=== PATIENT | male | born 1960 | race African-American/Black ===

== ENCOUNTER 2020-03-10 19:22 | Observation (INO) | payer OTHER ==
--- NOTE | 2020-03-10 19:57 | RAD REPORT ---
EXAM DESCRIPTION: CT - Head Brain Wo Cont - 03/10/2020 7:52 pm CLINICAL HISTORY: LOC head injury COMPARISON: No comparisons TECHNIQUE: Axial 5 mm thick images of the head were obtained without IV contrast. All CT scans are performed using dose optimization technique as appropriate and may include automated exposure control or mA/KV adjustment according to patient size. FINDINGS: No intracranial hemorrhage, mass, edema or shift of mid-line structures. No acute infarcti on changes seen. No abnormal extra-axial fluid collections. Ventricles are normal. Prominent physiol ogic calcifications are present. Mastoid air cells and visualized portions of the paranasal sinuses are clear. No acute bony findings. IMPRESSION: Negative non-contrast CT head examination.
[2020-03-10 20:50] LABS: Absolute Lymphocytes (CBC) 0.8 K/uL (0.7-4.9); Basophils % 0.5 % (0-1.3); Hematocrit 40.2 % (39.6-49.0); Lymphocytes % 14.2 % (15.3-44.8); MPV 9.2 fL (7.6-11.3); RBC Red Blood Cell Count 4.23 M/uL (4.33-5.43)
[2020-03-10 21:05] LABS: ALT/SGPT 34 U/L (12-78); AST/SGOT 36 U/L (15-37); Albumin 4.1 g/dL (3.4-5.0); Alkaline Phosphatase 70 U/L (45-117); BUN Blood Urea Nitrogen 32 mg/dL (7-18); Bicarbonate 32 mmol/L (21-32); Bilirubin Direct 0.2 mg/dL (0-0.2); Bilirubin Total 0.7 mg/dL (0.2-1.0); Glucose Level 115 mg/dL (74-106); Magnesium 2.5 mg/dL (1.8-2.4); NT PRO-BNP 81 pg/mL (<125); Potassium 3.3 mmol/L (3.5-5.1); Protein, Total 7.9 g/dL (6.4-8.2); Sodium Level 140 mmol/L (136-145); Troponin (Emerg Dept Use Only) < 0.02 ng/mL (0.0-0.045)
--- NOTE | 2020-03-10 21:17 | RAD REPORT ---
EXAM DESCRIPTION: RAD - Chest Single View - 03/10/2020 8:42 pm CLINICAL HISTORY: syncope COMPARISON: None TECHNIQUE: AP portable chest image was obtained 03/10/2020 8:42 pm . FINDINGS: Lungs are clear. No peripheral mass or consolidation. Focal nodularity superimposed on the posterior right sixth rib is believed to be a vessel seen on-end. Heart and vasculature are normal. No measurable pleural effusion and no pneumothorax. No acute bony abnormality seen. No acute aortic f indings suspected. IMPRESSION: No acute cardiopulmonary process.
--- NOTE | 2020-03-10 21:25 | ER ---
Nurse's Notes [facility] Name: Helio Spangler Age: 59 yrs Sex: Male : 1960 Arrival Date: 03/10/2020 Time: 19:27 Bed 16 Private MD: Diagnosis: Syncope and collapse;Atrial fibrillation and flutter-New onset;Contusion of unspecified part of head Presentation: 03/10 19:45 Chief complaint: Patient states: "I WAS SOAKING MY FEET IN EPSON SALT WHEN I STARTED vc FEELING TIRED, I STOOD UP AND PASSED OUT, I WOKE UP 2-3 MINUTES LATER ON MY BACK, SWEATING A LOT." PATIENT STATES UNWITNESSED LOC. Coronavirus screen: Proceed with normal triage. Patient denies a cough. Patient denies shortness of breath or difficulty breathing. Patient denies measured and/or subjective temperature greater than 100.4F prior to today's visit. Patient denies travel on a cruise ship or to a country the [facility] currently lists as an affected area. Patient denies contact with known and/or suspected case of COVID-19. Ebola Screen: No symptoms or risks identified at this time. Mechanism of Injury: resulted from a fall, from a standing position. Initial Sepsis Screen: Does the patient meet any 2 criteria? No. Patient's initial sepsis screen is negative. Does the patient have a suspected source of infection? No. Patient's initial sepsis screen is negative. Risk Assessment: Do you want to hurt yourself or someone else? Patient reports no desire to harm self or others. 19:45 Method Of Arrival: Ambulatory vc 19:45 Acuity: ELISA 3 vc 20:52 Onset of symptoms was March 10, 2020. Triage Assessment: 19:45 General: Appears in no apparent distress. Behavior is calm, cooperative, appropriate vc for age. Neuro: Reports a syncopal episode. Neuro: Level of Consciousness is awake, alert, obeys commands, Oriented to person, place, time, situation, Appropriate for age. Historical: - Allergies: 19:50 No Known Allergies; vc - Home Meds: 19:50 clonidine HCl 0.1 mg Oral tab 1 tab 3 times per day [Active]; vc aqlluaggma-xcphhhjycp-oegkckasmmfvywtbqtb oral 40-10-25 oral 1 tab once daily [Active]; - PMHx: 19:50 Hypertension; CHF; Renal Disease; vc - Immunization history:: Adult Immunizations up to date. - Social history:: Smoking status: Patient denies any tobacco usage or history of. Screenin:51 Abuse screen: Denies threats or abuse. Nutritional screening: No deficits noted. Tuberculosis screening: No symptoms or risk factors identified. Fall Risk None identified. Assessment: 20:20 General: Appears in no apparent distress. Behavior is calm, cooperative, appropriate for age. Pain: Denies pain. Neuro: Level of Consciousness is awake, alert, obeys commands, Oriented to person, place, time, situation, Appropriate for age. Cardiovascular: Heart tones S1 S2 present Capillary refill < 3 seconds Patient's skin is warm and dry. Pulses are palpable in right radial artery and left radial artery Rhythm is atrial fibrillation With PVC's. Respiratory: Airway is patent Respiratory effort is even, unlabored, Respiratory pattern is regular, symmetrical. Derm: Skin is intact, is healthy with good turgor, Skin is dry, Skin is. 21:53 Reassessment: Patient appears in no apparent distress at this time. Patient and/or family updated on plan of care and expected duration. Pain level reassessed. Patient is alert, oriented x 3, equal unlabored respirations, skin warm/dry/pink. 23:00 Reassessment: Patient appears in no apparent distress at this time. Patient and/or family updated on plan of care and expected duration. Pain level reassessed. Patient is alert, oriented x 3, equal unlabored respirations, skin warm/dry/pink. Vital Signs: 19:45 BP 128 / 78; Pulse 67; Resp 17; Temp 98.4; Pulse Ox 100% on R/A; Weight 87.09 kg; vc Height 6 ft. 4 in. (193.04 cm); 21:45 BP 131 / 95; Pulse 65; Resp 15; Pulse Ox 100% on R/A; vc 23:00 BP 111 / 68; Pulse 59; Resp 18; Pulse Ox 98% on R/A; wh 23:00 BP 111 / 68; Pulse 59; Resp 19; Pulse Ox 98% on R/A; vc 19:45 Body Mass Index 23.37 (87.09 kg, 193.04 cm) [place] Coma Score: 19:45 Eye Response: spontaneous(4). Verbal Response: oriented(5). Motor Response: obeys commands(6). Total: 15. ED Course: 19:27 Patient arrived in ED. cl3 19:46 Kyra Castellano, RN is Primary Nurse. 19:47 Kevin Bearden NP is PHCP. pm1 19:47 Elkin Tolbert MD is Attending Physician. pm1 19:48 Triage completed. vc 19:52 CT Head Brain wo Cont In Process Unspecified. EDMS 20:00 Inserted saline lock: 20 gauge in left antecubital area, using aseptic technique. Blood wh collected. By Kyra Castellano RN. 20:42 XRAY Chest (1 view) In Process Unspecified. EDMS 20:51 Arm band placed on right wrist. ah 20:52 Patient has correct armband on for positive identification. Bed in low position. Call light in reach. Side rails up X 1. cardiac monitor technician on. Pulse ox on. NIBP on. 21:25 Sharif Anderson MD is Hospitalizing Provider. pm1 23:19 No provider procedures requiring assistance completed. Patient admitted, IV remains in place. Administered Medications: 22:03 Drug: Lovenox 1 mg/kg Route: Sub-Q; Site: left lower abdomen; vc 22:09 Follow up: Response: No adverse reaction; Other; NO BLEEDING NOTED vc Outcome: 21:25 Decision to Hospitalize by Provider. pm1 23:21 Admitted to Med/surg accompanied by tech, family with patient, via wheelchair, room wh 219, Report called to Yaritza Nuñez RN 23:21 Condition: stable 23:21 Instructed on the need for transfer. 23:27 Patient left the ED. Signatures: Dispatcher [employer] EDOK Kevin Bearden, [employer] OPERATOR pm1 Jayy Mares Hardeep Stephens cl3 Zohra Wall RN RN Kyra Castellano, BESSIE RN Corrections: (The following items were deleted from the chart) 23:22 23:00 BP 121 / 84; Pulse 80bpm; Resp 18bpm; Pulse Ox 100% RA; [facility]
--- NOTE | 2020-03-10 21:25 | EDPHYS ---
Physician Documentation [facility] Name: Helio Spangler Age: 59 yrs Sex: Male : 1960 Arrival Date: 03/10/2020 Time: 19:27 Bed 16 Private MD: ED Physician Elkin Tolbert HPI: 03/10 20:09 This 59 yrs old Black Male presents to ER via Ambulatory with complaints of Passed Out pm1 Prior To Arrival, Head Injury-Adult. 20:09 The patient has experienced syncope, collapsed. Onset: The symptoms/episode pm1 began/occurred just prior to arrival. Duration: This was a single episode, that lasted an unknown period of time, a few minutes per patient. Context: the episode(s) was witnessed, by no one, occurred at home, occurred while the patient was walking, Just prior to the episode the patient experienced "sleepiness". Associated injury: Head/face: left temporal area, contusion. Associated signs and symptoms: Pertinent negatives: abdominal pain, chest pain, dizziness, numbness, shortness of breath, tingling. Current symptoms: Currently, the patient is not experiencing any symptoms. The patient has not experienced similar symptoms in the past. last saw steam shovel runner in the office about 1 month ago. Patient was sitting in a chair soaking his feet when he started feeling "sleepiness," so he got up to walk to his bed. Next thing he remembers is waking up on the floor on his back covered in sweat. No dizziness, no apparent orthostasis, chest pain, shortness of breath, or weakness. Historical: - Allergies: 19:50 No Known Allergies; vc - Home Meds: 19:50 clonidine HCl 0.1 mg Oral tab 1 tab 3 times per day [Active]; vc nouugossxh-nuzwqyyizw-xamynculkuxzcaohrgx oral 40-10-25 oral 1 tab once daily [Active]; - PMHx: 19:50 Hypertension; CHF; Renal Disease; vc - Immunization history:: Adult Immunizations up to date. - Social history:: Smoking status: Patient denies any tobacco usage or history of. ROS: 20:09 Constitutional: Negative for fever, chills, and weight loss, Eyes: Negative for injury, pm1 pain, redness, and discharge, ENT: Negative for injury, pain, and discharge, Neck: Negative for injury, pain, and swelling. 20:09 Cardiovascular: Negative for chest pain, palpitations, and edema, Respiratory: Negative for shortness of breath, cough, wheezing, and pleuritic chest pain, Abdomen/GI: Negative for abdominal pain, nausea, vomiting, diarrhea, and constipation, Back: Negative for injury and pain, MS/Extremity: Negative for injury and deformity, Skin: Negative for injury, rash, and discoloration. 20:09 Neuro: Positive for headache, syncope. Exam: 20:09 Abdomen/GI: Exam negative for Inspection: abdomen appears normal, Palpation: abdomen is pm1 soft and non-tender, in all quadrants, mass, is not appreciated, rebound tenderness, is not appreciated. 20:09 Constitutional: This is a well developed, well nourished patient who is awake, alert, and in no acute distress. Head/Face: Normocephalic, atraumatic. Neck: Trachea midline, no thyromegaly or masses palpated, and no cervical lymphadenopathy. Supple, full range of motion without nuchal rigidity, or vertebral point tenderness. No Meningismus. Chest/axilla: Normal chest wall appearance and motion. Nontender with no deformity. No lesions are appreciated. 20:09 Abdomen/GI: Soft, non-tender. No guarding or rebound. No evidence of tenderness throughout. Back: No spinal tenderness. No costovertebral tenderness. Full range of motion. Skin: Warm, dry with normal turgor. Normal color with no rashes, no lesions, and no evidence of cellulitis. MS/ Extremity: Pulses equal, no cyanosis. Neurovascular intact. Full, normal range of motion. 20:09 Cardiovascular: Rate: normal, Rhythm: irregular, Pulses: no pulse deficits are appreciated, Edema: is not appreciated. 20:09 Respiratory: the patient does not display signs of respiratory distress, Respirations: normal. 20:09 Neuro: Orientation: is normal, Mentation: is normal, Cranial nerves: CN II- XII are normal as tested, Cerebellar function: normal finger to nose testing, Motor: is normal, moves all fours, Sensation: is normal, no obvious gross deficits. Vital Signs: 19:45 BP 128 / 78; Pulse 67; Resp 17; Temp 98.4; Pulse Ox 100% on R/A; Weight 87.09 kg; vc Height 6 ft. 4 in. (193.04 cm); 21:45 BP 131 / 95; Pulse 65; Resp 15; Pulse Ox 100% on R/A; vc 23:00 BP 111 / 68; Pulse 59; Resp 18; Pulse Ox 98% on R/A; wh 23:00 BP 111 / 68; Pulse 59; Resp 19; Pulse Ox 98% on R/A; vc 19:45 Body Mass Index 23.37 (87.09 kg, 193.04 cm) vc Marcel Coma Score: 19:45 Eye Response: spontaneous(4). Verbal Response: oriented(5). Motor Response: obeys vc commands(6). Total: 15. MDM: 19:47 Patient medically screened. pm1 21:09 ED course: Patient denies any history of atrial fibrillation in the past. pm1 21:24 Data reviewed: vital signs. Data interpreted: Pulse oximetry: on room air is 100 %. pm1 Interpretation: normal. Counseling: I had a detailed discussion with the patient and/or guardian regarding: the historical points, exam findings, and any diagnostic results supporting the discharge/admit diagnosis, lab results, radiology results, the need for further work-up and treatment in the hospital. 03/10 20:15 Order name: Basic Metabolic Panel; Complete Time: 21:06 pm1 03/10 20:15 Order name: CBC with Diff; Complete Time: 21:06 pm1 03/10 20:15 Order name: LFT's; Complete Time: 21:06 pm1 03/10 20:15 Order name: Magnesium; Complete Time: 21:06 pm1 03/10 20:15 Order name: NT PRO-BNP; Complete Time: 21:06 pm1 03/10 20:15 Order name: PT-INR; Complete Time: 21:19 pm1 03/10 20:15 Order name: Troponin (emerg Dept Use Only); Complete Time: 21:06 pm1 03/10 22:24 Order name: CBC with Automated Diff EDMS 03/10 22:24 Order name: CBC with Automated Diff EDMS 03/10 22:24 Order name: Lipid Profile EDMS 03/10 22:24 Order name: Lipid Profile EDMS 03/10 22:26 Order name: Magnesium EDMS 03/10 22:26 Order name: Phosphorus EDMS 03/10 22:26 Order name: Protime (+INR) EDMS 03/10 19:37 Order name: CT Head Brain wo Cont; Complete Time: 20:06 tw4 03/10 20:15 Order name: XRAY Chest (1 view); Complete Time: 21:19 pm1 03/10 20:15 Order name: EKG; Complete Time: 20:17 pm1 03/10 22:24 Order name: CONS Physician Consult EDWI 03/10 22:24 Order name: Heart Healthy EDWI 03/10 22:24 Order name: Echo with Doppler EDWI 03/10 22:24 Order name: EKG Electrocardiogram EDWI 03/10 22:24 Order name: EKG Electrocardiogram EDWI 03/10 22:26 Order name: T4 Free EDWI 03/10 22:26 Order name: Thyroid Stimulating Hormone EDWI 03/10 22:26 Order name: Ur Protein EDWI 03/10 22:26 Order name: NT PRO-BNP EDWI 03/10 22:26 Order name: Troponin I EDWI 03/10 22:26 Order name: Renal Ultrasound-Complete [facility] 03/10 22:26 Order name: Renal Ultrasound-Complete [facility] 03/10 20:15 Order name: Cardiac monitoring; Complete Time: 20:38 pm1 03/10 20:15 Order name: EKG - Nurse/Tech; Complete Time: 21:55 pm1 03/10 20:15 Order name: IV Saline Lock; Complete Time: 20:38 pm1 03/10 20:15 Order name: Labs collected and sent; Complete Time: 20:38 pm1 03/10 20:15 Order name: O2 Per Protocol; Complete Time: 20:38 pm1 03/10 20:15 Order name: O2 Sat Monitoring; Complete Time: 20:38 pm1 Administered Medications: 22:03 Drug: Lovenox 1 mg/kg Route: Sub-Q; Site: left lower abdomen; vc 22:09 Follow up: Response: No adverse reaction; Other; NO BLEEDING NOTED vc Disposition: 03/11 07:03 Co-signature as Attending Physician, Elkin Tolbert MD I agree with the assessment and [facility] plan of care. Disposition: 03/10/20 21:25 Hospitalization ordered by Sharif Anderson for Inpatient Admission. Preliminary diagnosis are Atrial fibrillation and flutter - New onset, Syncope and collapse, Contusion of unspecified part of head. - Bed requested for Telemetry/MedSurg (Inpatient). - Status is Inpatient Admission. wh - Condition is Stable. - Problem is new. - Symptoms have improved. Signatures: Dispatcher [employer] EDNara Madrigal, BESSIE RN Kevin Bearden, DENT REMOVER DENT REMOVER pm1 [place]trell, Shortysy Elkin Tolbert MD MD tw4 Zohra Wall RN RN vc Corrections: (The following items were deleted from the chart) 03/10 22:49 21:25 Hospitalization Ordered by Sharif Anderson MD for Inpatient Admission. Preliminary cg diagnosis is Atrial fibrillation and flutter - New onsetSyncope and collapse; Contusion of unspecified part of head. Bed requested for Telemetry/MedSurg (Inpatient). Status is Inpatient Admission. Condition is Stable. Problem is new. Symptoms have improved. pm1 23:27 22:49 03/10/2020 21:25 Hospitalization Ordered by Sharif Anderson MD for Inpatient Admission. Preliminary diagnosis is Atrial fibrillation and flutter - New onsetSyncope and collapse; Contusion of unspecified part of head. Bed requested for Telemetry/MedSurg (Inpatient). Status is Inpatient Admission. Condition is Stable. Problem is new. Symptoms have improved. cg
[2020-03-10] MEDS ORDERED: ENOXAPARIN 100 MG/ML SYR SQ ONE (22:08)
[2020-03-10] MEDS ORDERED: ACETAMINOPHEN 500 MG TAB PO PRN (22:20)
[2020-03-10] MEDS ORDERED: MORPHINE 4 MG/ML SYR IV PRN (22:20)
[2020-03-10] MEDS ORDERED: ALPRAZOLAM 0.25 MG TABLET PO PRN (22:20)
[2020-03-10 23:40] VITALS: BMI 22.8
[2020-03-11] MEDS: METOPROLOL TAR 50 MG TAB PO SCH ×3 (00:27→22:04)
[2020-03-11 01:26] LABS: Urine Protein/Creatinine Ratio 0.08 ratio (<0.15)
[2020-03-11 06:14] LABS: Absolute Lymphocytes (CBC) 1.4 K/uL (0.7-4.9); Hematocrit 38.5 % (39.6-49.0); Lymphocytes % 27.2 % (15.3-44.8); RBC Red Blood Cell Count 4.05 M/uL (4.33-5.43)
[2020-03-11 06:36] LABS: HDL Cholesterol 71 mg/dL (40-60); LDL Cholesterol, Calculated 76 (<130); Magnesium 2.4 mg/dL (1.8-2.4); NT PRO-BNP 74 pg/mL (<125); Phosphorus 3.4 mg/dL (2.5-4.9); Protime INR 1.08; Troponin I < 0.02 ng/mL (0.0-0.045)
--- NOTE | 2020-03-11 07:56 | P.HP ---
Certification for Inpatient Patient admitted to: Observation With expected LOS: <2 Midnights Patient will require the following post-hospital care: None Practitioner: I am a practitioner with admitting privileges, knowledge of patient current condition, hospital course, and medical plan of care. Services: Services provided to patient in accordance with Admission requirements found in Title 42 Section 412.3 of the Code of Federal Regulations Patient History Date of Service: 03/10/20 Reason for admission: Syncope; atrial fibrillation with rapid ventricular response History of Present Illness: Patient is a 59-year-old gentleman who came to the hospital after a syncopal event. In the emergency room patient was found to be in atrial fibrillation wi th rapid ventricular response. 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 Newell. Patient also follows up with Nephrology as an outpatient. In the emergency room, patient's renal function was elevated. Patient was concerned for cardiac syncope. At this time, patient be admitted to the hospital for further evaluation. Will keep pt on telemetry and do a carotid Doppler and an echocardiogram. Will also continue with telemetry monitoring. Allergies No Known Allergies Allergy (Verified 03/10/20 23:40) Home Medications: Olmesartan/Amlodipin/Hcthiazid [Zvoysrg-Kqdtha-Ultr 40-10-25Mg] 1 tab PO DAILY 03/10/20 cloNIDine HCL [Catapres] 0.1 mg PO TID 03/10/20 - Past Medical/Surgical History Has patient received pneumonia vaccine in the past: No Diabetic: No -: HTN -: CHF -: CKD -: L leg varicose vein sx - Family History Father Family History: Reviewed- Non-Contributory - Social History Smoking Status: Never smoker Alcohol use: No CD- Drugs: No Caffeine use: No Place of Residence: Home Review of Systems 10-point ROS is otherwise unremarkable Physical Examination - Vital Signs Temperature: 98.4 F Blood Pressure: 109/75 Pulse: 65 Respirations: 17 Pulse Ox (%): 100 - Physical Exam General: Alert, In no apparent distress, Oriented x3 HEENT: Atraumatic, PERRLA, Mucous membr. moist/pink, EOMI, Sclerae nonicteric Neck: Supple, 2+ carotid pulse no bruit, No LAD, Without JVD or thyroid abnormality Respiratory: Clear to auscultation bilaterally, Normal air movement Cardiovascular: No murmurs, Irregular heart rate/rhythm Gastrointestinal: Normal bowel sounds, Soft and benign, Non-distended, No tenderness Musculoskeletal: No clubbing, No swelling, No tenderness Integumentary: No rashes Neurological: Normal gait, Normal speech, Normal strength at 5/5 x4 extr, Normal tone, Sensation intact, Cranial nerves 3-12 intact, Normal affect Lymphatics: No axilla or inguinal lymphadenopathy - Studies Laboratory Data (last 24 hrs) 03/10/20 20:30: PT 11.8, INR 1.00 03/10/20 20:30: WBC 5.9, Hgb 13.4 L, Hct 40.2, Plt Count 155 03/10/20 20:30: Sodium 140, Potassium 3.3 L, BUN 32 H, Creatinine 2.31 H, Glucose 115 H, Magnesium 2.5 H, Total Bilirubin 0.7, AST 36, ALT 34, Alkaline Phosphatase 70 Assessment & Plan - Problems (Diagnosis) (1) Syncope, cardiogenic Current Visit: Yes Status: Acute (2) Atrial fibrillation with rapid ventricular response Current Visit: Yes Status: Acute (3) Acute kidney injury superimposed on chronic kidney disease Current Visit: Yes Status: Acute - Plan 1. Serial troponins and EKG 2. Cardiology consultation 3. Echocardiogram and carotid Doppler 4. Continue with beta-lucia and monitor on telemetry 5. Lipid profile 6. Continue with anti-platelet therapy and anticoagulation 7. GI and DVT prophylaxis Discharge Plan: Home Plan to discharge in: Greater than 2 days - Advance Directives Does patient have a Living Will: No Does patient have a Durable POA for Healthcare: No - Code Status/Comfort Care Code Status Assessed: Yes Code Status: Full Code Critical Care: No Time Spent Managing PTS Care (In Minutes): 45
[2020-03-11 08:52] LABS: BUN Blood Urea Nitrogen 28 mg/dL (7-18); Bicarbonate 29 mmol/L (21-32); Glucose Level 89 mg/dL (74-106); Potassium 3.4 mmol/L (3.5-5.1); Sodium Level 142 mmol/L (136-145)
[2020-03-11] MEDS ORDERED: VALSARTAN 160 MG TAB PO SCH (09:00)
[2020-03-11] MEDS ORDERED: cloNIDine HCL 0.1 MG TAB PO SCH (09:00)
[2020-03-11] MEDS ORDERED: [UNRECOGNIZED DRUG - OTHER] PO SCH (09:00)
[2020-03-11] MEDS ORDERED: AMLODIPINE 10 MG TAB PO SCH (09:00)
[2020-03-11] MEDS ORDERED: OLMESARTAN PO SCH (09:00)
[2020-03-11] MEDS ORDERED: HCTHIAZID PO SCH (09:00)
[2020-03-11] MEDS ORDERED: ASPIRIN EC 81 MG TAB PO SCH (09:00)
[2020-03-11] MEDS ORDERED: hydroCHLOROthiazide 25 MG TAB PO SCH (09:00)
[2020-03-11] MEDS ORDERED: AMLODIPIN PO SCH (09:00)
[2020-03-11] MEDS: ENOXAPARIN 80 MG/0.8 ML SQ SCH ×2 (09:08→20:15)
--- NOTE | 2020-03-11 10:22 | P.CNS ---
Date of Consult: 03/11/20 Reason for Consult: REBECCA Chief Complaint: Syncope; atrial fibrillation with rapid ventricular response History of Present Illness: A 59 Y/o AA man with PMHX of CKD III Cr GFR 50 May/2019 as per Pt , Hx of CHF with pericardial effusion , varicose veins , HTN on olmesartan/amlodipine, HCTZ and clonidine pt presented with syncope episode, fpund to have Afib with RVR PCP referred the pt to neurologists, but pt couldn't follow due to insurance issue Pt denied NSAID intake or contrast exposure cr in ER 2.1 and improved to 1.9 today denied chest pain , palpitation , nausea, vomiting or diarrhea Physical exam general: AAOX3, NAD , Neck; Supple, No elevated JVD hear: RRR, normal S1,2 no murmur or rub Chest: CTAB, no rlaes or wheezes Abdomen: Soft , Nt Extremities No edema varicose viens REBECCA on CKD III due to prerenal azotemia and possible ischmic ATN Cr is close to baseline as per pt will dc clonidine and HCTZ resume BP meds only if SBP >130 non proteinuric will order US And UA avoid nephrotixic meds HTN Borderline now will dc clonidine and HCTZ resume BP meds only if SBP >130 new onset Afib cont metoprolol cardiology consulted Hx of CHF pt looks slightly dry to euvolemic will dc HCZT for now Syncope head t : no significant finding pending carotid doppler total time spent 50 min Allergies No Known Allergies Allergy (Verified 03/10/20 23:40) Home Medications: Olmesartan/Amlodipin/Hcthiazid [Komhjjo-Coaqnw-Jaau 40-10-25Mg] 1 tab PO DAILY 03/10/20 cloNIDine HCL [Catapres] 0.1 mg PO TID 03/10/20 - Past Medical/Surgical History Diabetic: No -: HTN -: CHF -: CKD -: L leg varicose vein sx - Family History Father Family History: Reviewed- Non-Contributory - Social History Alcohol use: No CD- Drugs: No Caffeine use: No Place of Residence: Home Physical Examination Temp Pulse Resp BP Pulse Ox 98.4 F 65 17 109/75 100 03/11/20 08:03 03/11/20 09:07 03/11/20 08:03 03/11/20 09:07 03/11/20 08:03 Laboratory Data (last 24 hrs) 03/10/20 20:30: PT 11.8, INR 1.00 03/10/20 20:30: WBC 5.9, Hgb 13.4 L, Hct 40.2, Plt Count 155 03/10/20 20:30: Sodium 140, Potassium 3.3 L, BUN 32 H, Creatinine 2.31 H, Glucose 115 H, Magnesium 2.5 H, Total Bilirubin 0.7, AST 36, ALT 34, Alkaline Phosphatase 70
--- NOTE | 2020-03-11 10:53 | RAD REPORT ---
EXAM DESCRIPTION: US - Renal Ultrasound-Complete - 03/11/2020 10:44 am CLINICAL HISTORY: REBECCA COMPARISON: No comparisons FINDINGS: The right kidney measures 9.1 x 5.3 x 3.9 cm. The left kidney measures 8.8 x 5.2 x 4.4 cm . Cortical thickness is normal. Increased echogenicity is seen from medical renal disease, body habit us affects or a combination. No hydronephrosis or suspicious renal mass. Bladder was contracted and could not be further assessed. IMPRESSION: No hydronephrosis or suspicious renal mass. Increased cortical echogenicity is probably medical renal disease. There is some contribution from carlos dy habitus affects.
--- NOTE | 2020-03-11 10:55 | RAD REPORT ---
EXAM DESCRIPTION: - CP - 03/11/2020 10:44 am CLINICAL HISTORY: Syncope COMPARISON: No comparisons TECHNIQUE: Real-time sonographic evaluation of bilateral carotid and vertebral systems was performed . Ochoa scale and Doppler interrogation were performed with waveform tracing bilaterally. FINDINGS: Normal high resistance waveforms are noted in both external carotid arteries. The common c arotid arteries and internal carotid arteries show normal low resistance waveforms. No significant plaque formation is seen. Peak systolic and end diastolic velocity values and the ICA/ CCA ratios are in the non-hemodynamically significant range. Antegrade flow seen in both vertebral arteries. Velocity values and ratios were recorded and are retained in the patient's imaging records. IMPRESSION: No significant atherosclerotic changes noted. No evidence of a hemodynamically significant stenosis.
[2020-03-11 13:09] LABS: Urine Appearance CLEAR; Urine Bilirubin NEGATIVE (NEG); Urine Blood NEGATIVE (NEG); Urine Color YELLOW; Urine Glucose NEGATIVE (NEG); Urine Protein NEGATIVE (NEG); Urine Specific Gravity 1.015 (1.005-1.030); Urine pH 6.5 (5.0-7.0)
[2020-03-11 13:12] LABS: Urine Microscopic Reflex NO UMIC
--- NOTE | 2020-03-11 17:43 | CON ---
Date of Consultation: 03/11/2020 Reason For Consultation: Atrial fibrillation and syncope. History Of Present Illness: Mr. Spangler has a history of hypertension, chronic renal disease and con gestive heart failure. He came in with an episode of syncope while he was walking in his house. He had taken clonidine in addition to his normal medication which include olmesartan, amlodipine, hydroc hlorothiazide combination pill. Denied any chest pain. Denied any nausea, vomiting, diaphoresis, PN D, orthopnea, pedal edema, or palpitation. His workup so far in the hospital showed sinus rhythm at 65, creatinine of 2.31. Potassium of 3.3. His atrial fibrillation was short lasting noted in the em ergency room, it has resolved. Past Medical History: As stated above. Allergies: NONE. Review of Systems: Negative. Social History: Negative. Family History: Negative. Physical Examination: Vital Signs: Stable, afebrile. HEENT: Negative. Neck: Supple with no bruit. Chest: Clear. Cardiac: Revealed regular rhythm and rate. No murmurs, gallops, or rubs. Abdomen: Benign. Extremities: Revealed no clubbing, cyanosis, or edema. Diagnostic Data: As stated earlier. Impression And Plan: 1.Syncope secondary to orthostatic hypotension. 2.History of congestive heart failure probably diastolic. Echocardiogram is pending. TSH is pendin g. 3.Renal insufficiency, chronic. Renal consultation is pending. 4.Hypokalemia. 5.Short episode of atrial fibrillation. I think we need to stop his olmesartan, amlodipine, hydrochlorothiazide combination pill. I thing we need to switch him to a low-dose beta-lucia. We will see what the echocardiogram and the thyroid show. Nephrology's consultation is pending. If the echocardiogram is unremarkable, he can probably go home with the above-mentioned instructions. He can follow up with Dr. Meeks, his mold blower in the near future. JOHN/JENSEN Voice ID: [id number] Report ID: [id number]
[2020-03-11 17:48] VITALS: O2SAT 100
[2020-03-11 21:21] VITALS: BP 136/91; TEMP 98.2
--- NOTE | 2020-03-12 06:29 | EKG ---
Test Date: 2020-03-10 Test Time: 20:41:27 Explosive Ordnance Disposal Manager: NICHELLE MEASUREMENT RESULTS: Intervals: Rate: 83 MI: QRSD: 86 QT: 394 QTc: 462 [place]: P: MI: QRS: 66 T: 33 INTERPRETIVE STATEMENTS: Atrial fibrillation Nonspecific ST abnormality, probably digitalis effect Abnormal ECG No previous ECG available for comparison Electronically Signed On 03-12-20 06:24:44 CDT by Davonte Thomas
--- NOTE | 2020-03-12 08:20 | ECHO ---
HEIGHT: 6 ft 4 in WEIGHT: 188 lb 0 oz DATE OF STUDY: 03/11/[address]: Sharif Anderson MD 2-DIMENSIONAL: YES M.MODE: YES DOPPLER: YES COLOR FLOW: YES TDS: NO PORTABLE: NO DEFINITY: NO BUBBLE STUDY: NO DIAGNOSIS: ATRIAL FIBRILLATION NEW ONSET, SYNCOPE CARDIAC HISTORY: CATHERIZATION: NO SURGERY: NO PROSTHETIC VALVE: NO PACEMAKER: NO MEASUREMENTS (cm) DIASTOLIC (NORMALS) SYSTOLIC (NORMALS) IVSd 0.9 (0.6-1.2) LA Diam 3.0 (1.9-4.0) LVEF 44% LVIDd 5.6 (3.5-5.7) LVIDs 4.4 (2.0-3.5) %FS 22% LVPWd 0.7 (0.6-1.2) Ao Diam 2.6 (2.0-3.7) 2 DIMENSIONAL ASSESSMENT: RIGHT ATRIUM: NORMAL LEFT ATRIUM: NORMAL RIGHT VENTRICLE: NORMAL LEFT VENTRICLE: NORMAL SIZE TRICUSPID VALVE: NORMAL MITRAL VALVE: NORMAL PULMONIC VALVE: NORMAL AORTIC VALVE: NORMAL PERICARDIAL EFFUSION: NONE AORTIC ROOT: NORMAL LEFT VENTRICULAR WALL MOTION: MILD GLOBAL HYPOKINESIS. DOPPLER/COLOR FLOW: NORMAL COMMENTS: MILD GLOBAL HYPOKINESIS. LEFT VENTRICULAR EJECTION FRACTION 45%. NO THROMBUS. NORMAL LEFT ATRIAL SIZE. TECHNOLOGIST: Hayden VERDIN
[2020-03-12] MEDS ORDERED: VALSARTAN 160 MG TAB PO SCH (09:00)
--- NOTE | 2020-03-12 22:55 | P.DS ---
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 In the emergency room patient was found to be in atrial fibrillation with rapid ventricular response. 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 Newell. Patient also follows up with Nephrology as an outpatient. In the emergency room, patient's renal function was elevated. Patient was concerned for cardiac syncope. At this time, patient be admitted to the hospital for further evaluation. Will keep pt on telemetry and do a carotid Doppler and an echocardiogram. Will also continue with telemetry monitoring. Hospital Course: Patient did well during hospital stay. Echocardiogram was performed and this revealed an ejection fraction of 43%. Carotid Doppler was negative. Telemetry did not reveal any significant abnormality except for when she came in with atrial fibrillation. At this time, patient is stable for discharge with outpatient follow-up. No anti coagulation recommended. Beta-lucia therapy and tapering dose of clonidine recommended. Vital Signs/Physical Exam: Temp Pulse Resp BP Pulse Ox 98.2 F 73 18 136/91 H 100 03/11/20 20:00 03/11/20 22:04 03/11/20 20:00 03/11/20 22:04 03/11/20 20:00 General: Alert, In no apparent distress, Oriented x3 Laboratory Data at Discharge: WBC 5.0 K/uL (4.3-10.9) D 03/11/20 05:33 Hgb 12.7 g/dL (13.6-17.9) L 03/11/20 05:33 Hct 38.5 % (39.6-49.0) L 03/11/20 05:33 Plt Count 149 K/uL (152-406) L 03/11/20 05:33 PT 12.7 SECONDS (9.5-12.5) H 03/11/20 05:33 INR 1.08 03/11/20 05:33 Sodium 142 mmol/L (136-145) 03/11/20 05:33 Potassium 3.4 mmol/L (3.5-5.1) L 03/11/20 05:33 BUN 28 mg/dL (7-18) H 03/11/20 05:33 Creatinine 1.93 mg/dL (0.55-1.3) H 03/11/20 05:33 Glucose 89 mg/dL (74-106) 03/11/20 05:33 Phosphorus 3.4 mg/dL (2.5-4.9) 03/11/20 05:33 Magnesium 2.4 mg/dL (1.8-2.4) 03/11/20 05:33 Total Bilirubin 0.7 mg/dL (0.2-1.0) 03/10/20 20:30 AST 36 U/L (15-37) 03/10/20 20:30 ALT 34 U/L (12-78) 03/10/20 20:30 Alkaline Phosphatase 70 U/L (45-117) 03/10/20 20:30 Troponin I < 0.02 ng/mL (0.0-0.045) 03/11/20 05:33 Triglycerides 53 mg/dL (<150) 03/11/20 05:33 Cholesterol 158 mg/dL (<200) 03/11/20 05:33 HDL Cholesterol 71 mg/dL (40-60) H 03/11/20 05:33 Cholesterol/HDL Ratio 2.23 03/11/20 05:33 Home Medications: Metoprolol Tartrate [Lopressor] 25 mg PO BID #60 tab 03/11/20 cloNIDine HCL [Catapres*] 0.1 mg PO Q12HR #60 tab 03/11/20 New Medications: cloNIDine HCL [Catapres*] 0.1 mg PO Q12HR #60 tab Metoprolol Tartrate [Lopressor] 25 mg PO BID #60 tab Patient Discharge Instructions: OK TO DC IV AND DC HOME if echocardiogram is ok. FOLLOW-UP WITH PRIMARY CARE PROVIDER IN 1-2 WEEKS. FOLLOW-UP WITH CARDIOLOGY and NEPHROLOGY IN 1-2 WEEKS. RETURN TO THE ER IF SYMPTOMS WORSENS. CALL DR. ANGUIANO AT [phone] IF ANY QUESTIONS REGARDING HOSPITAL STAY. PLEASE CALL THE FLOOR AT [phone] IF ANY MEDICATION OR NURSING QUESTIONS. Diet: AHA Activity: Fall precautions Followup: Cole Delaney MD [ACTIVE - CAN ADMIT] - 1-2 Weeks (Call office for appointment.) Davonte Thomas MD [ACTIVE - CAN ADMIT] - 1-2 Weeks (Call for appointment.) Time spent managing pt's care (in minutes): 20
== END 2020-03-11 21:30 | disposition home or self-care (01) ==
LOC: ER 19:22 → 2ND 22:20
PROVIDERS: ADMIT Hospitalist; ATTEND Hospitalist
DX: I48.20 Chronic atrial fibrillation, unspecified (principal); I95.1 Orthostatic hypotension; E87.6 Hypokalemia; N17.9 Acute kidney failure, unspecified; I13.0 Hypertensive heart and chronic kidney disease with heart failure and stage 1 through stage 4 chronic kidney disease, or unspecified chronic kidney disease; I12.9 Hypertensive chronic kidney disease with stage 1 through stage 4 chronic kidney disease, or unspecified chronic kidney disease; N18.3 Chronic kidney disease, stage 3 (moderate); I50.9 Heart failure, unspecified; I31.3 Pericardial effusion (noninflammatory); Z79.899 Other long term (current) drug therapy; Z11.59 Encounter for screening for other viral diseases
CPT/HCPCS: 93005; 93306; 85025 ×2; 80048 ×2; 36415; 83735 ×2; 84100; 85610 ×2; 80061; 80076; 84443; 81003; 82570; 84484 ×2; 84439; 83880 ×2; 84156; 70450; 71045; 93880; 76770; 96372; 99285; U0002; J1650 ×3; G0378 ×2

== ENCOUNTER 2020-08-30 19:58 | Emergency (ER) | payer OTHER ==
[2020-08-30 21:04] LABS: Absolute Lymphocytes (CBC) 0.6 K/uL (0.7-4.9); Basophils % 0.5 % (0-1.3); Hematocrit 44.4 % (39.6-49.0); MPV 9.4 fL (7.6-11.3); RBC Red Blood Cell Count 4.76 M/uL (4.33-5.43)
[2020-08-30 21:10] LABS: Magnesium 2.4 mg/dL (1.8-2.4); Potassium 3.5 mmol/L (3.5-5.1)
--- NOTE | 2020-08-30 22:23 | EDPHYS ---
Physician Documentation [facility] Name: Helio Spangler Age: 60 yrs Sex: Male : 1960 Arrival Date: 08/30/2020 Time: 20:01 Bed 18 Private MD: ED Physician Elkin Tolbert HPI: 08/30 20:24 This 60 yrs old Black Male presents to ER via Ambulatory with complaints of Headache, cp Vomiting. 20:24 The patient complains of pain to the top of head. The patient describes the headache as cp aching. Onset: The symptoms/episode began/occurred today. Associated signs and symptoms: Pertinent positives: 1 episode of vomiting. 20:24 Severity of symptoms: in the emergency department the pain has improved, moderately, a cp " 3" out of "10", patient reports taking tylenol prior to arrival. Historical: - Allergies: 20:12 No Known Allergies; rr5 - Home Meds: 20:12 clonidine HCl 0.1 mg Oral tab 1 tab 3 times per day [Active]; tadalafil oral oral rr5 [Active]; amlodipine-valsartan oral oral [Active]; Metoprolol Tartrate Oral [Active]; - PMHx: 20:12 CHF; Hypertension; Renal Disease; prostate cancer; rr5 - PSHx: 20:12 varicos vein surgery; rr5 - Immunization history:: Adult Immunizations up to date. - Social history:: Smoking status: unknown Patient/guardian denies using alcohol, street drugs. ROS: 20:26 Eyes: Negative for injury, pain, redness, and discharge. cp 20:26 Constitutional: Negative for body aches, chills, fever, poor PO intake. 20:26 ENT: Negative for ear pain, sore throat, difficulty swallowing, difficulty handling secretions. 20:26 Cardiovascular: Negative for chest pain, edema, palpitations. 20:26 Respiratory: Negative for cough, shortness of breath, wheezing. 20:26 Abdomen/GI: Positive for 1 episode of vomiting, Negative for abdominal pain, nausea, diarrhea, constipation. 20:26 Back: Negative for pain at rest, pain with movement. 20:26 Skin: Negative for rash. 20:26 Neuro: Positive for headache, Negative for altered mental status, syncope, weakness. 20:26 All other systems are negative. Exam: 20:30 Head/Face: Normocephalic, atraumatic. cp 20:30 Constitutional: The patient appears in no acute distress, alert, awake, non-diaphoretic, non-toxic, well developed, well nourished. 20:30 Eyes: Periorbital structures: appear normal, Pupils: equal, round, and reactive to light and accomodation, Extraocular movements: intact throughout, Conjunctiva: normal, no exudate, no injection, Sclera: no appreciated abnormality, Lids and lashes: appear normal, bilaterally. 20:30 ENT: External ear(s): are unremarkable, Nose: is normal, Posterior pharynx: Airway: no evidence of obstruction, patent. 20:30 Neck: ROM/movement: is normal, is supple, without pain, no range of motions limitations, no meningismus, no nuchal rigidity. 20:30 Chest/axilla: Inspection: normal. cp 20:30 Cardiovascular: Rate: normal, JVD: is not appreciated. 20:30 Respiratory: the patient does not display signs of respiratory distress, Respirations: normal, no use of accessory muscles, no retractions, labored breathing, is not present, Breath sounds: are clear throughout, no decreased breath sounds, no stridor, no wheezing. 20:30 Abdomen/GI: Exam negative for discomfort, distension, guarding, Inspection: abdomen appears normal. 20:30 Neuro: Orientation: to person, place \\T\\ time. Mentation: is normal, Cerebellar function: Romberg testing is negative, Motor: moves all fours, strength is normal, Sensation: is normal. Vital Signs: 20:06 BP 152 / 98; Pulse 66; Resp 17; Temp 98.2; Pulse Ox 100% ; Weight 87.09 kg; Height 6 rr5 ft. 4 in. (193.04 cm); Pain 3/10; 20:39 BP 149 / 93; Pulse 60; Resp 17; Pulse Ox 100% ; ll1 21:10 BP 141 / 89; Pulse 59; Resp 17; Pulse Ox 100% on R/A; ll1 21:57 BP 128 / 80; Pulse 59; Resp 16; Pulse Ox 100% on R/A; ll1 20:06 Body Mass Index 23.37 (87.09 kg, 193.04 cm) rr5 MDM: 20:14 Patient medically screened. cp 21:00 Differential diagnosis: hypertensive headache, hyponatremia, migraine, subarachnoid cp bleed, tension headache. 22:22 Data reviewed: vital signs, nurses notes, lab test result(s), radiologic studies, CT cp scan, and as a result, I will discharge patient. 22:22 Counseling: I had a detailed discussion with the patient and/or guardian regarding: the cp historical points, exam findings, and any diagnostic results supporting the discharge/admit diagnosis, lab results, radiology results, the need for outpatient follow up, an vocational coordinator, to return to the emergency department if symptoms worsen or persist or if there are any questions or concerns that arise at home. Response to treatment: VSS. Blood pressure improved and headache improved. Will discharge to home for continued monitoring. 08/30 20:37 Order name: Magnesium; Complete Time: 21:53 cp 08/30 20:37 Order name: CBC with Diff; Complete Time: 21:53 cp 08/30 21:53 Interpretation: Normal except: PLT 140; NOELLE% 76.6; LYM% 11.0. cp 08/30 20:24 Order name: CT Head Brain wo Cont cp 08/30 20:37 Order name: BMP; Complete Time: 21:53 cp 08/30 21:54 Interpretation: Normal except: CO2 33; GLUC 108; CRE 1.50; GFR 58. cp 08/30 20:37 Order name: IV; Complete Time: 20:38 cp Administered Medications: No medications were administered Disposition: 08/31 02:01 Co-signature as Attending Physician, Elkin Tolbert MD I agree with the assessment and [facility] plan of care. Disposition: 08/30/20 22:22 Discharged to Home. Impression: Headache, Hypertensive heart and chronic kidney disease. - Condition is Stable. - Discharge Instructions: General Headache Without Cause, Hypertension, How to Take Your Blood Pressure, [id number], Form - Blood Pressure Record Sheet. - Medication Reconciliation Form, Thank You Letter, Antibiotic Education, Prescription Opioid Use form. - Follow up: Private Physician; When: 1 - 2 days; Reason: Recheck today's complaints. - Problem is new. - Symptoms have improved. Signatures: Dispatcher [employer] EDMS Rajan Golden PA PA cp Aaron Lovelace RN RN 4 Elkin Tolbert MD MD 4 Alvarez, Noé, RN RN rr5 Corrections: (The following items were deleted from the chart) 08/30 22:23 22:22 08/30/2020 22:22 Discharged to Home. Impression: Headache. Condition is Stable. cp Forms are Medication Reconciliation Form, Thank You Letter, Antibiotic Education, Prescription Opioid Use. Follow up: Private Physician; When: 1 - 2 days; Reason: Recheck today's complaints. Problem is new. Symptoms have improved. cp 22:39 22:23 08/30/2020 22:22 Discharged to Home. Impression: Headache; Hypertensive heart and jb4 chronic kidney disease. Condition is Stable. Discharge Instructions: General Headache Without Cause, Hypertension, How to Take Your Blood Pressure, [id number], Form - Blood Pressure Record Sheet. Forms are Medication Reconciliation Form, Thank You Letter, Antibiotic Education, Prescription Opioid Use. Follow up: Private Physician; When: 1 - 2 days; Reason: Recheck today's complaints. Problem is new. Symptoms have improved. cp
--- NOTE | 2020-08-30 22:23 | ER ---
Nurse's Notes [facility] Name: Helio Spangler Age: 60 yrs Sex: Male : 1960 Arrival Date: 08/30/2020 Time: 20:01 Bed 18 Private MD: Diagnosis: Headache;Hypertensive heart and chronic kidney disease Presentation: 08/30 20:06 Chief complaint: Patient states: headache and vomiting started today, denies any rr5 weakness or slurred of speech. Coronavirus screen: Client denies travel out of the [place] in the last 14 days. At this time, the client does not indicate any symptoms associated with coronavirus-19. Ebola Screen: Patient negative for fever greater than or equal to 101.5 degrees Fahrenheit, and additional compatible Ebola Virus Disease symptoms Patient denies exposure to infectious person. Patient denies travel to an Ebola-affected area in the 21 days before illness onset. Initial Sepsis Screen: Does the patient meet any 2 criteria? No. Patient's initial sepsis screen is negative. Does the patient have a suspected source of infection? No. Patient's initial sepsis screen is negative. Risk Assessment: Do you want to hurt yourself or someone else? Patient reports no desire to harm self or others. Onset of symptoms was August 30, 2020. Care prior to arrival: Medication(s) given: Tylenol. 20:06 Method Of Arrival: Ambulatory rr5 20:06 Acuity: ELISA 3 rr5 Triage Assessment: 20:29 General: Appears in no apparent distress. Behavior is calm, cooperative, appropriate ll1 for age. Pain: Pain currently is 3 out of 10 on a pain scale. Also complains of nausea. Pain: Complains of pain in top of head Quality of pain is described as aching, Pain began 1 day ago. 20:29 Headache History: The patient has had previous headaches and this one is similar to ll1 previous episodes. Historical: - Allergies: 20:12 No Known Allergies; rr5 - Home Meds: 20:12 clonidine HCl 0.1 mg Oral tab 1 tab 3 times per day [Active]; tadalafil oral oral rr5 [Active]; amlodipine-valsartan oral oral [Active]; Metoprolol Tartrate Oral [Active]; - PMHx: 20:12 CHF; Hypertension; Renal Disease; prostate cancer; rr5 - PSHx: 20:12 varicos vein surgery; rr5 - Immunization history:: Adult Immunizations up to date. - Social history:: Smoking status: unknown Patient/guardian denies using alcohol, street drugs. Screenin:13 VAN Screening: Arm Drift: Patient shows no arm weakness. Patient is VAN negative. rr5 20:28 Abuse screen: Denies threats or abuse. Nutritional screening: No deficits noted. ll1 Tuberculosis screening: No symptoms or risk factors identified. Fall Risk None identified. Total Garcia Fall Scale indicates No Risk (0-24 pts). Assessment: 20:27 General: Appears in no apparent distress. Behavior is calm, cooperative, appropriate ll1 for age. Pain: Complains of pain in top of head Quality of pain is described as aching, Pain began 1 day ago. Neuro: Level of Consciousness is awake, alert, obeys commands, Oriented to person, place, time, situation, Appropriate for age Last Model Maker are equal bilaterally Moves all extremities. Full function Gait is steady, Speech is normal, Facial symmetry appears normal, Reports headache. Cardiovascular: No deficits noted. Respiratory: No deficits noted. GI: Abdomen is flat, Bowel sounds present X 4 quads. Abd is soft and non tender X 4 quads. Reports nausea, vomiting. 21:25 Reassessment: Patient and/or family updated on plan of care and expected duration. Pain ll1 level reassessed. Gait steady to restroom. 22:38 Reassessment: Patient appears in no apparent distress at this time. Patient and/or jb4 family updated on plan of care and expected duration. Pain level reassessed. Patient is alert, oriented x 3, equal unlabored respirations, skin warm/dry/pink. Patient states feeling better. Vital Signs: 20:06 BP 152 / 98; Pulse 66; Resp 17; Temp 98.2; Pulse Ox 100% ; Weight 87.09 kg; Height 6 rr5 ft. 4 in. (193.04 cm); Pain 3/10; 20:39 BP 149 / 93; Pulse 60; Resp 17; Pulse Ox 100% ; ll1 21:10 BP 141 / 89; Pulse 59; Resp 17; Pulse Ox 100% on R/A; ll1 21:57 BP 128 / 80; Pulse 59; Resp 16; Pulse Ox 100% on R/A; ll1 20:06 Body Mass Index 23.37 (87.09 kg, 193.04 cm) rr5 ED Course: 20:01 Patient arrived in ED. bp1 20:10 Triage completed. rr5 20:12 Rajan Golden PA is PHCP. cp 20:12 Elkin Tolbert MD is Attending Physician. cp 20:13 Arm band placed on right wrist. rr5 20:15 Keyanna Stephens, RN is Primary Nurse. ll1 20:28 Patient has correct armband on for positive identification. Bed in low position. Call ll1 light in reach. Side rails up X 1. Cardiac monitoring not applicable on this patient. 20:50 Inserted saline lock: 22 gauge in right antecubital area, using aseptic technique. ll1 Blood collected. 21:31 CT Head Brain wo Cont In Process Unspecified. EDMS 22:10 Report given to BESSIE Schmitz in ER. ll1 22:38 No provider procedures requiring assistance completed. IV discontinued, intact, jb4 bleeding controlled, No redness/swelling at site. Pressure dressing applied. Administered Medications: No medications were administered Outcome: 22:22 Discharge ordered by MD. cp 22:38 Discharged to home ambulatory, with family. jb4 22:38 Condition: stable 22:38 Discharge instructions given to patient, Instructed on discharge instructions, follow up and referral plans. Demonstrated understanding of instructions, follow-up care. 22:39 Patient left the ED. jb4 Signatures: Dispatcher [employer] EDMS Rajan Golden PA PA cp Bryson, James, RN RN jb4 Noé Alvarez RN RN rr5 Keyanna Stephens, BESSIE RN ll1 Aundrea Ordonez bp1
--- NOTE | 2020-09-01 10:34 | RAD REPORT ---
EXAM DESCRIPTION: CT Head Without Intravenous Contrast CLINICAL HISTORY: The patient is 60 years old and is Male; HEADACHE TECHNIQUE: Axial computed tomography images of the head/brain without intravenous contrast. Sagitt al and coronal reformatted images were created and reviewed. This CT exam was performed using one o r more of the following dose reduction techniques: automated exposure control, adjustment of the mA and/or kV according to patient size, and/or use of iterative reconstruction technique. COMPARISON: CT of the head March 10, 2020 FINDINGS: BRAIN: Calcification along the falx is present. The jolley-white differentiation is mainta ined. There is no intracranial hemorrhage, mass effect, or midline shift. There are no extra-axial fl uid collections. VENTRICLES: Unremarkable. No ventriculomegaly. BONES/JOINTS: No acute fracture. SOFT TISSUES: Unremarkable. SINUSES: Unremarkable as visualized. No acute sinusitis. MASTOID AIR CELLS: Unremarkable as visualized. No mastoid effusion. ORBITS: Unremarkable as visualized. IMPRESSION: No acute intracranial findings. Electronically signed by: Mamie Car MD 08/30/2020 9:51 PM CLEANER SIGNS Due to temporary technical issues with the PACS/Fluency reporting system, reports are being signed by the in house radiologist without review as a courtesy to ensure prompt reporting. The interpreting r adiologist is fully responsible for the content of the report.
[2020-09-04 06:00] VITALS: TEMP 98.2; O2SAT 100
[2020-09-04 06:04] VITALS: BP 128/80
== END 2020-08-30 22:39 | disposition home or self-care (01) ==
LOC: ER 19:58
DX: I13.0 Hypertensive heart and chronic kidney disease with heart failure and stage 1 through stage 4 chronic kidney disease, or unspecified chronic kidney disease (principal); N18.9 Chronic kidney disease, unspecified; I50.9 Heart failure, unspecified
CPT/HCPCS: 36415; 70450; 80048; 83735; 85025; 99284